=== PATIENT | female | born 1965 | race Caucasian/White ===

== ENCOUNTER 2016-08-23 23:07 | Inpatient (IN) | payer MEDICAID, OTHER ==
[~2016-08-23] VITALS: Ht 167.6 cm; Wt 62.1 kg
[~2016-08-23 23:07] MED LIST: ALPR0.255 PO; PARO10TA89 PO; TRAZ-144 PO
[2016-08-23] MEDS ORDERED: LORazepam 2 MG/ML VIAL IM ONE (23:30)
[2016-08-23] MEDS ORDERED: DiphenhydrAMINE HCL 50 MG/ML VIAL IM ONE (23:45)
[2016-08-23] MEDS ORDERED: OLANZapine 5 MG TABLET PO ONE (23:45)
[2016-08-24] VITALS (11 sets, daily range): BP systolic 97–133; BP diastolic 56–78
[2016-08-24 01:45] LABS: BASOPHILS # (AUTO) 0.01 K/uL (0.00-0.20); BASOPHILS % (AUTO) 0.2 % (0.0-2.0); EOSINOPHILS # (AUTO) 0.06 K/uL (0.00-0.70); EOSINOPHILS % (AUTO) 0.79 % (1.0-6.0); HEMATOCRIT 35.2 % (36-46); HEMOGLOBIN 11.6 g/dL (12.0-16.0); LYMPHOCYTES # (AUTO) 2.3 K/uL (1.0-4.8); LYMPHOCYTES % (AUTO) 32.7 % (22.0-44.0); MEAN CORPUSCULAR HEMOGLOBIN 31.6 pg (26.0-34.0); MEAN CORPUSCULAR VOLUME 96 fL (80-100); MONOCYTES # (AUTO) 0.7 K/uL (0.1-1.0); MONOCYTES % (AUTO) 10.2 % (2.0-9.0); NEUTROPHILS % (AUTO) 56.1 % (40.0-70.0); PLATELET COUNT (AUTO) 330 K/uL (150-450); RED BLOOD CELL COUNT(AUTO) 3.69 MIL/uL (4.00-5.20); WHITE BLOOD COUNT (AUTO) 7.1 K/uL (4.5-11.0)
[2016-08-24 01:54] LABS: ANION GAP 10 mmol/L (8-16); CALCIUM, TOTAL 8.2 mg/dL (8.8-10.5); CARBON DIOXIDE 26 mmol/L (22-29); CHLORIDE 105 mmol/L (98-107); CREATININE 0.69 mg/dL (0.60-1.30); GLOMERULAR FILTR. RATE CALC > 60 mL/min (>60); POTASSIUM 3.7 mmol/L (3.5-5.1); SODIUM SERUM 141 mmol/L (136-145); UREA NITROGEN, BLOOD 12 mg/dL (7-18)
[2016-08-24 02:02] LABS: ALANINE AMINOTRANSFERASE 256 U/L (12-78); ASPARTATE AMINOTRANSFERASE 76 U/L (15-37); BILIRUBIN,TOTAL 0.6 mg/dL (0.1-1.0); CHOL/HDL RATIO 4.1 (3.9-5.7)
[2016-08-24 03:33] LABS: APPEARANCE,URINE TURBID (CLEAR); GLUCOSE, URINE (UA) NEGATIVE (NEGATIVE); KETONES,URINE 15 mg/dL (NEGATIVE); LEUKOCYTE ESTERASE ,URINE LARGE (NEGATIVE); OCCULT BLOOD,URINE SMALL (NEGATIVE); PH,URINE 5.5 (5.0-8.0); PROTEIN,URINE TRACE (NEGATIVE)
[2016-08-24 03:39] LABS: ADD UA MICROSCOPIC YES
[2016-08-24 03:52] LABS: URINALYSIS COMMENT Moderate Trich. seen
[2016-08-24 03:54] LABS: SQUAMOUS EPITHELIAL CELL,UR Few /LPF (None Seen); WBC,URINE >100 /HPF (0-5)
[2016-08-24] MEDS ORDERED: BACITRACIN 28.4 GM OINTMENT TP PRN (08:30)
[2016-08-24] MEDS ORDERED: BENZOCAINE/MENTHOL LOZENGE MM PRN (08:30)
[2016-08-24] MEDS ORDERED: MAGNESIUM HYDROXIDE SUSPENSION 30 ML UDCUP PO PRN (08:30)
[2016-08-24] MEDS ORDERED: MAG HYDROX/AL HYDROX/SIMETH ES 30 ML SUSPENSION UDCUP PO PRN (08:30)
[2016-08-24] MEDS ORDERED: LOPERAMIDE HCL 2 MG CAPSULE PO PRN (08:30)
[2016-08-24] MEDS ORDERED: ONDANSETRON HCL 4 MG TABLET PO PRN (08:30)
[2016-08-24] MEDS ORDERED: ACETAMINOPHEN 325 MG TABLET PO PRN (08:30)
[2016-08-24] MEDS ORDERED: CloNIDine HCL 0.1 MG TABLET PO PRN (08:30)
[2016-08-24] MEDS ORDERED: PETROLATUM,WHITE 71 GM JELLY TP PRN (08:30)
[2016-08-24] MEDS ORDERED: IBUPROFEN 600 MG TABLET PO PRN (08:30)
[2016-08-24] MEDS ORDERED: ALBUTEROL SULFATE HFA 90 MCG/PUFF 8 GM INHALER IH PRN (08:30)
[2016-08-24] MEDS ORDERED: MetroNIDAZOLE 500 MG TABLET PO ONE (08:30)
[2016-08-24] MEDS: NYSTATIN 15 GM POWDER BOTTLE TP SCH ×2 (09:00→17:00)
[2016-08-24] MEDS: NITROFURANTOIN/NITROFURAN MAC 100 MG CAPSULE [MACROBID] PO SCH ×3 (09:00→17:00)
[2016-08-24] MEDS: LORazepam 2 MG TABLET PO PRN (13:15)
[2016-08-24] MEDS: OLANZapine 5 MG TABLET PO SCH (20:21)
[2016-08-24] MEDS ORDERED: RisperiDONE 1 MG TABLET PO SCH (21:00)
[2016-08-25 01:23] VITALS: BP 105/61
[2016-08-25 06:32] VITALS: BP 105/61
[2016-08-25] MEDS: OLANZapine 5 MG TABLET PO SCH ×2 (09:02→20:28)
[2016-08-25] MEDS: NITROFURANTOIN/NITROFURAN MAC 100 MG CAPSULE [MACROBID] PO SCH ×2 (09:02→17:55)
[2016-08-25] MEDS: NYSTATIN 15 GM POWDER BOTTLE TP SCH ×2 (09:02→17:00)
[2016-08-25] MEDS: LORazepam 2 MG TABLET PO PRN (09:03)
[2016-08-25 09:06] VITALS: BP 93/65
[2016-08-25 09:09] VITALS: BP 93/65
[2016-08-25 09:30] VITALS: BP 105/68
[2016-08-25 16:30] VITALS: BP 100/67
[2016-08-26 01:46] VITALS: BP 100/72
[2016-08-26 08:19] VITALS: BP 97/77
[2016-08-26 08:32] VITALS: BP 97/77
[2016-08-26] MEDS: NITROFURANTOIN/NITROFURAN MAC 100 MG CAPSULE [MACROBID] PO SCH ×2 (09:27→17:35)
[2016-08-26] MEDS: OLANZapine 5 MG TABLET PO SCH ×2 (09:28→21:16)
[2016-08-26] MEDS: NYSTATIN 15 GM POWDER BOTTLE TP SCH ×2 (09:28→17:35)
[2016-08-26] MEDS: OLANZapine 5 MG RAPDIS TABLET PO PRN (10:05)
[2016-08-26] MEDS: LORazepam 2 MG TABLET PO PRN (10:05)
[2016-08-26 15:13] LABS: HEPATITIS Bs ANTIGEN SCREEN P Negative (Negative); HEPATITIS C AB SCREEN >11.0 s/co ratio (0.0-0.9)
[2016-08-26 19:52] VITALS: BP 103/75
[2016-08-27] MEDS: LORazepam 2 MG TABLET PO PRN ×2 (09:01→17:05)
[2016-08-27] MEDS: NITROFURANTOIN/NITROFURAN MAC 100 MG CAPSULE [MACROBID] PO SCH ×2 (09:01→17:02)
[2016-08-27] MEDS: NYSTATIN 15 GM POWDER BOTTLE TP SCH ×2 (09:02→17:02)
[2016-08-27] MEDS: OLANZapine 5 MG TABLET PO SCH (09:02)
[2016-08-27] MEDS ORDERED: OLANZapine 2.5 MG TABLET PO ONE (09:30)
[2016-08-27 14:24] VITALS: BP 111/71
[2016-08-27 16:13] VITALS: BP 117/66
[2016-08-27] MEDS: OLANZapine 5 MG RAPDIS TABLET PO PRN (17:06)
[2016-08-27 17:19] VITALS: BP 117/66
[2016-08-27] MEDS: OLANZapine 7.5 MG TABLET PO SCH (20:40)
[2016-08-28 06:47] VITALS: BP 103/60
[2016-08-28] MEDS: NYSTATIN 15 GM POWDER BOTTLE TP SCH ×2 (08:54→16:17)
[2016-08-28] MEDS: OLANZapine 7.5 MG TABLET PO SCH ×2 (08:54→20:46)
[2016-08-28] MEDS: NITROFURANTOIN/NITROFURAN MAC 100 MG CAPSULE [MACROBID] PO SCH ×2 (08:54→16:17)
[2016-08-28 09:02] VITALS: BP 124/70
[2016-08-28] MEDS: LORazepam 2 MG TABLET PO PRN ×2 (09:04→17:02)
[2016-08-28 13:12] LABS: HEPATITIS C AB SCREEN >11.0 s/co ratio (0.0-0.9)
[2016-08-28 16:00] VITALS: BP 101/70
[2016-08-29 07:22] VITALS: BP 121/79
[2016-08-29] MEDS: NYSTATIN 15 GM POWDER BOTTLE TP SCH ×2 (08:34→17:46)
[2016-08-29] MEDS: OLANZapine 7.5 MG TABLET PO SCH ×2 (08:34→20:04)
[2016-08-29 09:50] VITALS: BP 128/76
[2016-08-29 16:00] VITALS: BP 114/79
[2016-08-29] MEDS: OLANZapine 5 MG RAPDIS TABLET PO PRN (17:45)
[2016-08-29] MEDS: ZOLPIDEM TARTRATE 10 MG TABLET PO PRN (21:11)
[2016-08-30 05:58] VITALS: BP 112/76
[2016-08-30] MEDS: NYSTATIN 15 GM POWDER BOTTLE TP SCH ×2 (08:28→16:52)
[2016-08-30] MEDS: OLANZapine 7.5 MG TABLET PO SCH ×2 (08:28→20:31)
[2016-08-30 09:20] VITALS: BP 108/73
[2016-08-30] MEDS: OLANZapine 5 MG RAPDIS TABLET PO PRN ×2 (13:29→18:38)
[2016-08-30 16:15] VITALS: BP 128/73
[2016-08-30] MEDS: ZOLPIDEM TARTRATE 10 MG TABLET PO PRN (22:19)
[2016-08-31 07:05] VITALS: BP 103/78
[2016-08-31] MEDS: NYSTATIN 15 GM POWDER BOTTLE TP SCH ×2 (08:53→16:48)
[2016-08-31] MEDS: OLANZapine 7.5 MG TABLET PO SCH ×2 (08:53→20:13)
[2016-08-31 16:00] VITALS: BP 109/75
[2016-08-31] MEDS: OLANZapine 5 MG RAPDIS TABLET PO PRN (16:27)
[2016-08-31] MEDS: ZOLPIDEM TARTRATE 10 MG TABLET PO PRN (20:34)
[2016-09-01 06:11] VITALS: BP 110/71
[2016-09-01] MEDS: OLANZapine 7.5 MG TABLET PO SCH ×2 (08:51→20:09)
[2016-09-01] MEDS: NYSTATIN 30 GM CREAM TP SCH ×2 (09:00→17:08)
[2016-09-01] MEDS: FLUCONAZOLE 150 MG TABLET PO ONE ×2 (09:06→13:06)
[2016-09-01 09:21] VITALS: BP 111/62
[2016-09-01 16:02] VITALS: BP 109/76
[2016-09-01] MEDS: OLANZapine 5 MG RAPDIS TABLET PO PRN (16:26)
[2016-09-01] MEDS: ZOLPIDEM TARTRATE 10 MG TABLET PO PRN (21:02)
[2016-09-02 06:47] VITALS: BP 110/77
[2016-09-02] MEDS: OLANZapine 5 MG RAPDIS TABLET PO PRN (06:48)
[2016-09-02 06:50] VITALS: BP 112/67
[2016-09-02] MEDS ORDERED: DIAZEPAM 2 MG TABLET PO PRN (08:15)
[2016-09-02 08:22] LABS: ADD UA MICROSCOPIC YES; APPEARANCE,URINE CLOUDY (CLEAR); GLUCOSE, URINE (UA) NEGATIVE (NEGATIVE); KETONES,URINE NEGATIVE (NEGATIVE); LEUKOCYTE ESTERASE ,URINE MODERATE (NEGATIVE); OCCULT BLOOD,URINE NEGATIVE (NEGATIVE); PH,URINE 7.5 (5.0-8.0); PROTEIN,URINE NEGATIVE (NEGATIVE)
[2016-09-02] MEDS: OLANZapine 7.5 MG TABLET PO SCH ×2 (08:22→20:28)
[2016-09-02] MEDS: NYSTATIN 30 GM CREAM TP SCH ×2 (08:22→17:25)
[2016-09-02 08:38] VITALS: BP 100/70
[2016-09-02] MEDS: NICOTINE 21 MG/24 HOUR PATCH TD SCH (09:00)
[2016-09-02] MEDS ORDERED: PERMETHRIN 1% 60 ML LOTION TP ONE (09:00)
[2016-09-02 09:02] LABS: SQUAMOUS EPITHELIAL CELL,UR Few /LPF (None Seen)
[2016-09-02 16:27] VITALS: BP 118/65
[2016-09-02 17:07] LABS: HEPATITIS C RNA QNT 6020 IU/mL
[2016-09-02] MEDS: CIPROFLOXACIN HCL 250 MG TABLET PO SCH (18:00)
[2016-09-02] MEDS: ZOLPIDEM TARTRATE 10 MG TABLET PO PRN (22:02)
[2016-09-03 06:28] VITALS: BP 107/75
[2016-09-03] MEDS: CIPROFLOXACIN HCL 250 MG TABLET PO SCH (08:08)
[2016-09-03] MEDS: OLANZapine 7.5 MG TABLET PO SCH (08:08)
[2016-09-03] MEDS: NYSTATIN 30 GM CREAM TP SCH (08:08)
[2016-09-03] MEDS: NICOTINE 21 MG/24 HOUR PATCH TD SCH (08:08)
[2016-09-03 08:28] VITALS: BP 107/76
[2016-09-03] MEDS ORDERED: OLAN7.5T2 PO (09:57)
[2016-09-03] MEDS ORDERED: CIP250 PO (09:59)
== END 2016-09-03 15:16 | disposition home or self-care (01) | DRG 750 ==
LOC: EMS 23:08 → B3A 08-24 00:24
PROC: GZHZZZZ Group Psychotherapy (ICD-10-PCS; principal; 2016-08-24)
DX: F25.1 Schizoaffective disorder, depressive type (principal); N39.0 Urinary tract infection, site not specified; J44.9 Chronic obstructive pulmonary disease, unspecified; E83.51 Hypocalcemia; F15.10 Other stimulant abuse, uncomplicated; B37.3 Candidiasis of vulva and vagina; A59.9 Trichomoniasis, unspecified; F12.90 Cannabis use, unspecified, uncomplicated; F43.10 Post-traumatic stress disorder, unspecified; F19.10 Other psychoactive substance abuse, uncomplicated; N76.0 Acute vaginitis; G47.00 Insomnia, unspecified; M54.5 Low back pain; D64.9 Anemia, unspecified; B95.1 Streptococcus, group B, as the cause of diseases classified elsewhere; B96.4 Proteus (mirabilis) (morganii) as the cause of diseases classified elsewhere; F17.200 Nicotine dependence, unspecified, uncomplicated; R26.81 Unsteadiness on feet; Z76.5 Malingerer [conscious simulation]; Z88.8 Allergy status to other drugs, medicaments and biological substances; Z79.899 Other long term (current) drug therapy; Z71.6 Tobacco abuse counseling; Z71.51 Drug abuse counseling and surveillance of drug abuser; Z59.0 Homelessness; Z72.89 Other problems related to lifestyle
CPT/HCPCS: 51702; 80074; 82306; 84443; 86803; 87086; 87147; 87522; 96372; 99285; G0480; J1200; J2060

== ENCOUNTER 2016-10-03 22:12 | Inpatient (IN) | payer MEDICAID ==
[~2016-10-03] VITALS: Ht 165.1 cm; Wt 61.7 kg
[~2016-10-03 22:12] MED LIST changes: -ALPR0.255 PO; +CIP250 PO; +OLAN7.5T2 PO; -PARO10TA89 PO; -TRAZ-144 PO
[2016-10-04 00:43] VITALS: BP 127/65
[2016-10-04] MEDS ORDERED: PNEUMOCOCCAL VACCINE POLYVALENT 0.5 ML VIAL [PPSV23] IM ONE (01:15)
[2016-10-04 07:45] LABS: BASOPHILS # (AUTO) 0.02 K/uL (0.00-0.20); BASOPHILS % (AUTO) 0.6 % (0.0-2.0); EOSINOPHILS # (AUTO) 0.18 K/uL (0.00-0.70); EOSINOPHILS % (AUTO) 4.57 % (1.0-6.0); HEMOGLOBIN 12.3 g/dL (12.0-16.0); LYMPHOCYTES # (AUTO) 1.7 K/uL (1.0-4.8); MEAN CORPUSCULAR HGB CONC 33.3 G/dL (31.0-37.0); MEAN CORPUSCULAR VOLUME 96 fL (80-100); MONOCYTES # (AUTO) 0.4 K/uL (0.1-1.0); MONOCYTES % (AUTO) 9.2 % (2.0-9.0); NEUTROPHILS # (AUTO) 1.6 K/uL (1.8-7.7); NEUTROPHILS % (AUTO) 41.5 % (40.0-70.0); PLATELET COUNT (AUTO) 300 K/uL (150-450); RED BLOOD CELL COUNT(AUTO) 3.85 MIL/uL (4.00-5.20); WHITE BLOOD COUNT (AUTO) 3.9 K/uL (4.5-11.0)
[2016-10-04 08:10] LABS: ALANINE AMINOTRANSFERASE 29 U/L (12-78); ANION GAP 4 mmol/L (8-16); ASPARTATE AMINOTRANSFERASE 25 U/L (15-37); BILIRUBIN,TOTAL 0.3 mg/dL (0.1-1.0); CALCIUM, TOTAL 8.8 mg/dL (8.8-10.5); CARBON DIOXIDE 31 mmol/L (22-29); CHLORIDE 103 mmol/L (98-107); CHOL/HDL RATIO 3.5 (3.9-5.7); CREATININE 0.99 mg/dL (0.60-1.30); GLOMERULAR FILTR. RATE CALC 59 mL/min (>60); POTASSIUM 4.6 mmol/L (3.5-5.1); SODIUM SERUM 138 mmol/L (136-145); THYROID STIMULATING HORMONE 0.54 uIU/mL (0.36-3.74); TOTAL PROTEIN, SERUM 6.6 g/dL (6.4-8.2); UREA NITROGEN, BLOOD 18 mg/dL (7-18)
[2016-10-04] MEDS ORDERED: CloNIDine HCL 0.1 MG TABLET PO PRN (08:45)
[2016-10-04] MEDS ORDERED: IBUPROFEN 600 MG TABLET PO PRN (08:45)
[2016-10-04] MEDS ORDERED: BACITRACIN 28.4 GM OINTMENT TP PRN (08:45)
[2016-10-04] MEDS ORDERED: ACETAMINOPHEN 325 MG TABLET PO PRN (08:45)
[2016-10-04] MEDS ORDERED: ONDANSETRON HCL 4 MG TABLET PO PRN (08:45)
[2016-10-04] MEDS ORDERED: ALBUTEROL SULFATE HFA 90 MCG/PUFF 8 GM INHALER IH PRN (08:45)
[2016-10-04] MEDS ORDERED: MAG HYDROX/AL HYDROX/SIMETH ES 30 ML SUSPENSION UDCUP PO PRN (08:45)
[2016-10-04] MEDS ORDERED: PETROLATUM,WHITE 71 GM JELLY TP PRN (08:45)
[2016-10-04] MEDS ORDERED: BENZOCAINE/MENTHOL LOZENGE MM PRN (08:45)
[2016-10-04] MEDS ORDERED: LOPERAMIDE HCL 2 MG CAPSULE PO PRN (08:45)
[2016-10-04] MEDS ORDERED: MAGNESIUM HYDROXIDE SUSPENSION 30 ML UDCUP PO PRN (08:45)
[2016-10-04] MEDS: NICOTINE 21 MG/24 HOUR PATCH TD SCH (09:00)
[2016-10-04 09:04] VITALS: BP 118/62
[2016-10-04] MEDS: LORazepam 2 MG TABLET PO PRN (09:45)
[2016-10-04] MEDS: QUEtiapine FUMARATE 100 MG TABLET PO PRN (09:45)
[2016-10-04] MEDS: DOCUSATE SODIUM 100 MG CAPSULE PO SCH (09:59)
[2016-10-04] MEDS: OMEPRAZOLE 20 MG CAPSULE PO SCH (09:59)
[2016-10-04] MEDS: MULTIVITAMINS WITH MINERALS, THERAPEUTIC TABLET PO SCH (09:59)
[2016-10-04 16:30] VITALS: BP 109/79
[2016-10-05 08:39] VITALS: BP 118/66
[2016-10-05] MEDS: NICOTINE 21 MG/24 HOUR PATCH TD SCH (09:00)
[2016-10-05] MEDS: OMEPRAZOLE 20 MG CAPSULE PO SCH (09:56)
[2016-10-05] MEDS: MULTIVITAMINS WITH MINERALS, THERAPEUTIC TABLET PO SCH (09:56)
[2016-10-05] MEDS: QUEtiapine FUMARATE 100 MG TABLET PO PRN (09:56)
[2016-10-05] MEDS: LORazepam 2 MG TABLET PO PRN (09:56)
[2016-10-05] MEDS: DOCUSATE SODIUM 100 MG CAPSULE PO SCH (09:57)
[2016-10-05 16:42] VITALS: BP 113/68
[2016-10-06 08:18] VITALS: BP 115/63
[2016-10-06] MEDS: MULTIVITAMINS WITH MINERALS, THERAPEUTIC TABLET PO SCH (09:32)
[2016-10-06] MEDS: OMEPRAZOLE 20 MG CAPSULE PO SCH (09:32)
[2016-10-06] MEDS: NICOTINE 21 MG/24 HOUR PATCH TD SCH (09:32)
[2016-10-06] MEDS: DOCUSATE SODIUM 100 MG CAPSULE PO SCH (09:32)
[2016-10-06] MEDS: QUEtiapine FUMARATE 100 MG TABLET PO PRN (13:51)
[2016-10-06] MEDS: LORazepam 2 MG TABLET PO PRN (13:51)
[2016-10-06 16:20] VITALS: BP 114/80
[2016-10-07 05:51] VITALS: BP 110/72
[2016-10-07] MEDS: OMEPRAZOLE 20 MG CAPSULE PO SCH (08:19)
[2016-10-07] MEDS: MULTIVITAMINS WITH MINERALS, THERAPEUTIC TABLET PO SCH (08:19)
[2016-10-07] MEDS: NICOTINE 21 MG/24 HOUR PATCH TD SCH (08:20)
[2016-10-07] MEDS: LORazepam 2 MG TABLET PO PRN ×2 (08:21→16:54)
[2016-10-07 08:59] VITALS: BP 116/85
[2016-10-07] MEDS: DOCUSATE SODIUM 100 MG CAPSULE PO SCH (09:00)
[2016-10-07 16:22] VITALS: BP 109/77
[2016-10-07] MEDS: QUEtiapine FUMARATE 100 MG TABLET PO PRN (16:54)
[2016-10-08 06:43] VITALS: BP 110/72
[2016-10-08 08:09] VITALS: BP 113/75
[2016-10-08] MEDS: MULTIVITAMINS WITH MINERALS, THERAPEUTIC TABLET PO SCH (08:19)
[2016-10-08] MEDS: OMEPRAZOLE 20 MG CAPSULE PO SCH (08:19)
[2016-10-08] MEDS: NICOTINE 21 MG/24 HOUR PATCH TD SCH (08:19)
[2016-10-08] MEDS: DOCUSATE SODIUM 100 MG CAPSULE PO SCH (08:19)
[2016-10-08] MEDS: LORazepam 2 MG TABLET PO PRN ×2 (10:55→16:24)
[2016-10-08] MEDS: OLANZapine 5 MG TABLET PO SCH (16:15)
[2016-10-08] MEDS: QUEtiapine FUMARATE 100 MG TABLET PO PRN (16:24)
[2016-10-08 17:59] VITALS: BP 123/81
[2016-10-09] MEDS: LORazepam 2 MG TABLET PO PRN ×3 (03:06→16:21)
[2016-10-09 07:05] VITALS: BP 118/72
[2016-10-09] MEDS: OMEPRAZOLE 20 MG CAPSULE PO SCH (08:27)
[2016-10-09] MEDS: OLANZapine 5 MG TABLET PO SCH ×2 (08:27→16:21)
[2016-10-09] MEDS: MULTIVITAMINS WITH MINERALS, THERAPEUTIC TABLET PO SCH (08:27)
[2016-10-09] MEDS: DOCUSATE SODIUM 100 MG CAPSULE PO SCH (08:27)
[2016-10-09 08:32] VITALS: BP 112/74
[2016-10-09] MEDS: NICOTINE 21 MG/24 HOUR PATCH TD SCH (09:11)
[2016-10-09 16:00] VITALS: BP 111/76
[2016-10-09] MEDS: QUEtiapine FUMARATE 100 MG TABLET PO PRN (16:21)
[2016-10-09] MEDS: ZOLPIDEM TARTRATE 10 MG TABLET PO PRN (21:02)
[2016-10-10 06:49] VITALS: BP 100/62
[2016-10-10 08:22] VITALS: BP 118/76
[2016-10-10] MEDS: MULTIVITAMINS WITH MINERALS, THERAPEUTIC TABLET PO SCH (09:18)
[2016-10-10] MEDS: QUEtiapine FUMARATE 100 MG TABLET PO PRN ×2 (09:18→14:27)
[2016-10-10] MEDS: OMEPRAZOLE 20 MG CAPSULE PO SCH (09:18)
[2016-10-10] MEDS: DOCUSATE SODIUM 100 MG CAPSULE PO SCH (09:18)
[2016-10-10] MEDS: LORazepam 2 MG TABLET PO PRN ×2 (09:18→14:27)
[2016-10-10] MEDS: OLANZapine 5 MG TABLET PO SCH ×2 (09:19→16:17)
[2016-10-10] MEDS: NICOTINE 21 MG/24 HOUR PATCH TD SCH (09:19)
[2016-10-10 19:57] VITALS: BP 100/73
[2016-10-10] MEDS: ZOLPIDEM TARTRATE 10 MG TABLET PO PRN (20:51)
[2016-10-11] MEDS: LORazepam 2 MG TABLET PO PRN ×3 (00:07→16:56)
[2016-10-11 00:13] VITALS: BP 112/69
[2016-10-11 08:09] VITALS: BP 103/79
[2016-10-11] MEDS: OMEPRAZOLE 20 MG CAPSULE PO SCH (08:30)
[2016-10-11] MEDS: MULTIVITAMINS WITH MINERALS, THERAPEUTIC TABLET PO SCH (08:30)
[2016-10-11] MEDS: OLANZapine 5 MG TABLET PO SCH ×2 (08:30→16:57)
[2016-10-11] MEDS: DOCUSATE SODIUM 100 MG CAPSULE PO SCH (08:30)
[2016-10-11] MEDS: NICOTINE 21 MG/24 HOUR PATCH TD SCH (08:30)
[2016-10-11] MEDS: QUEtiapine FUMARATE 100 MG TABLET PO PRN ×2 (11:21→16:56)
[2016-10-11] MEDS ORDERED: DSS100 PO (14:21)
[2016-10-11] MEDS ORDERED: MULT-248 PO (14:21)
[2016-10-11] MEDS ORDERED: DOCU250C91 PO (14:21)
[2016-10-11] MEDS ORDERED: OLAN5TAB2 PO (14:21)
[2016-10-11] MEDS ORDERED: OMEP20 PO (14:21)
[2016-10-11 16:07] VITALS: BP 105/72
[2016-10-11] MEDS: ZOLPIDEM TARTRATE 10 MG TABLET PO PRN (21:06)
[2016-10-12 02:44] VITALS: BP 117/71
[2016-10-12 08:41] VITALS: BP 144/88
[2016-10-12] MEDS: DOCUSATE SODIUM 100 MG CAPSULE PO SCH (08:58)
[2016-10-12] MEDS: OMEPRAZOLE 20 MG CAPSULE PO SCH (08:58)
[2016-10-12] MEDS: OLANZapine 5 MG TABLET PO SCH (08:59)
[2016-10-12] MEDS: NICOTINE 21 MG/24 HOUR PATCH TD SCH (08:59)
[2016-10-12] MEDS: LORazepam 2 MG TABLET PO PRN (09:03)
[2016-10-12] MEDS: MULTIVITAMINS WITH MINERALS, THERAPEUTIC TABLET PO SCH (09:03)
== END 2016-10-12 13:00 | disposition home or self-care (01) | DRG 750 ==
LOC: B3A 23:54
PROVIDERS: ADMIT Psychiatry & Neurology Psychiatry
PROC: 3E0234Z Introduction of Serum, Toxoid and Vaccine into Muscle, Percutaneous Approach (ICD-10-PCS; principal; 2016-10-04)
DX: F25.0 Schizoaffective disorder, bipolar type (principal); E44.1 Mild protein-calorie malnutrition; R45.851 Suicidal ideations; F15.20 Other stimulant dependence, uncomplicated; Z59.0 Homelessness; F17.210 Nicotine dependence, cigarettes, uncomplicated; F12.90 Cannabis use, unspecified, uncomplicated; D72.819 Decreased white blood cell count, unspecified; B18.2 Chronic viral hepatitis C; G47.00 Insomnia, unspecified; J44.9 Chronic obstructive pulmonary disease, unspecified; K59.00 Constipation, unspecified; M19.90 Unspecified osteoarthritis, unspecified site; Z71.6 Tobacco abuse counseling; Z88.8 Allergy status to other drugs, medicaments and biological substances; Z79.899 Other long term (current) drug therapy; Z79.51 Long term (current) use of inhaled steroids; Z71.51 Drug abuse counseling and surveillance of drug abuser; Z23 Encounter for immunization; Z68.22 Body mass index [BMI] 22.0-22.9, adult
CPT/HCPCS: 84436; 84439; 84443; 86592; 90471

== ENCOUNTER 2016-12-15 19:27 | Emergency (ER) | payer MEDICAID, OTHER ==
[~2016-12-15] VITALS: Ht 167.6 cm; Wt 59.1 kg
[~2016-12-15 19:27] MED LIST changes: -CIP250 PO; +DSS100 PO; +OLAN5TAB2 PO; -OLAN7.5T2 PO; +OMEP20 PO
[2016-12-15 20:24] LABS: BASOPHILS # (AUTO) 0.03 K/uL (0.00-0.20); BASOPHILS % (AUTO) 0.5 % (0.0-2.0); EOSINOPHILS # (AUTO) 0.21 K/uL (0.00-0.70); EOSINOPHILS % (AUTO) 3.18 % (1.0-6.0); HEMATOCRIT 38.4 % (36-46); HEMOGLOBIN 13.3 g/dL (12.0-16.0); MEAN CORPUSCULAR HEMOGLOBIN 31.9 pg (26.0-34.0); MEAN CORPUSCULAR HGB CONC 34.6 G/dL (31.0-37.0); MEAN CORPUSCULAR VOLUME 92 fL (80-100); MONOCYTES # (AUTO) 0.5 K/uL (0.1-1.0); MONOCYTES % (AUTO) 7.4 % (2.0-9.0); NEUTROPHILS % (AUTO) 43.9 % (40.0-70.0); PLATELET COUNT (AUTO) 288 K/uL (150-450); RED BLOOD CELL COUNT(AUTO) 4.16 MIL/uL (4.00-5.20); RED CELL DISTRIBUTION WIDTH 13.2 % (11.5-14.5)
[2016-12-15 20:31] LABS: ANION GAP 10 mmol/L (8-16); CALCIUM, TOTAL 8.4 mg/dL (8.8-10.5); CARBON DIOXIDE 26 mmol/L (22-29); CHLORIDE 103 mmol/L (98-107); CREATININE 0.82 mg/dL (0.60-1.30); GLOMERULAR FILTR. RATE CALC > 60 mL/min (>60); GLUCOSE,RANDOM 111 mg/dL (70-110); POTASSIUM 4.3 mmol/L (3.5-5.1); SODIUM SERUM 139 mmol/L (136-145); UREA NITROGEN, BLOOD 19 mg/dL (7-18)
[2016-12-15 20:37] LABS: ALANINE AMINOTRANSFERASE 57 U/L (12-78); ALBUMIN 3.3 g/dL (3.4-5.0); ALKALINE PHOSPHATASE 106 U/L (46-116); ASPARTATE AMINOTRANSFERASE 35 U/L (15-37); BILIRUBIN,TOTAL 0.1 mg/dL (0.1-1.0); TOTAL PROTEIN, SERUM 7.6 g/dL (6.4-8.2)
[2016-12-15 20:59] LABS: AMPHET/METH SCREEN,URINE NEGATIVE (NEGATIVE); BARBITURATE SCREEN, URINE NEGATIVE (NEGATIVE); BENZODIAZEPINES SCREEN,URINE POSITIVE (NEGATIVE); CANNABINOID SCREEN,URINE NEGATIVE (NEGATIVE); COCAINE SCREEN,URINE NEGATIVE (NEGATIVE); METHADONE SCREEN, URINE NEGATIVE (NEGATIVE); OPIATE SCREEN,URINE POSITIVE (NEGATIVE); PHENCYCLIDINE SCREEN,URINE NEGATIVE (NEGATIVE)
[2016-12-15 21:51] VITALS: BP 109/63
== END 2016-12-15 22:30 | disposition home or self-care (01) ==
LOC: EMS 19:29
DX: F10.129 Alcohol abuse with intoxication, unspecified (principal); R45.851 Suicidal ideations; F31.9 Bipolar disorder, unspecified; F20.9 Schizophrenia, unspecified; F15.90 Other stimulant use, unspecified, uncomplicated; Z59.0 Homelessness; Z88.8 Allergy status to other drugs, medicaments and biological substances; Z87.891 Personal history of nicotine dependence; Y90.6 Blood alcohol level of 120-199 mg/100 ml
CPT/HCPCS: 36415; 80053; 80307; 85025; 99284; G0480

== ENCOUNTER 2017-05-14 10:43 | Inpatient (IN) | payer MEDICAID, OTHER ==
[~2017-05-14] VITALS: Ht 170.2 cm; Wt 60.4 kg
[2017-05-14 11:41] LABS: BASOPHILS % (AUTO) 0.3 % (0.0-2.0); EOSINOPHILS % (AUTO) 0.6 % (1.0-6.0); HEMATOCRIT 41.9 % (36-46); HEMOGLOBIN 14.4 g/dL (12.0-16.0); LYMPHOCYTES # (AUTO) 1.4 K/uL (1.0-4.8); LYMPHOCYTES % (AUTO) 14.9 % (22.0-44.0); MEAN CORPUSCULAR HEMOGLOBIN 32.8 pg (26.0-34.0); MEAN CORPUSCULAR HGB CONC 34.4 G/dL (31.0-37.0); MEAN CORPUSCULAR VOLUME 95 fL (80-100); MONOCYTES # (AUTO) 0.7 K/uL (0.1-1.0); MONOCYTES % (AUTO) 7.1 % (2.0-9.0); NEUTROPHILS # (AUTO) 7.2 K/uL (1.8-7.7); NEUTROPHILS % (AUTO) 77.1 % (40.0-70.0); PLATELET COUNT (AUTO) 344 K/uL (150-450); RED BLOOD CELL COUNT(AUTO) 4.39 MIL/uL (4.00-5.20); RED CELL DISTRIBUTION WIDTH 13.4 % (11.5-14.5)
[2017-05-14 11:57] LABS: ANION GAP 8 mmol/L (8-16); CALCIUM, TOTAL 9.9 mg/dL (8.8-10.5); CARBON DIOXIDE 30 mmol/L (22-29); CHLORIDE 100 mmol/L (98-107); CREATININE 1.01 mg/dL (0.60-1.30); GLOMERULAR FILTR. RATE CALC 57 mL/min (>60); GLUCOSE,RANDOM 101 mg/dL (70-110); POTASSIUM 4.1 mmol/L (3.5-5.1); SODIUM SERUM 138 mmol/L (136-145); UREA NITROGEN, BLOOD 14 mg/dL (7-18)
[2017-05-14 11:59] LABS: ALANINE AMINOTRANSFERASE 518 U/L (12-78); ALBUMIN 3.6 g/dL (3.4-5.0); ALKALINE PHOSPHATASE 118 U/L (46-116); ASPARTATE AMINOTRANSFERASE 407 U/L (15-37); BILIRUBIN,TOTAL 0.8 mg/dL (0.1-1.0); TOTAL PROTEIN, SERUM 8.8 g/dL (6.4-8.2)
[2017-05-14] MEDS ORDERED: LORazepam 2 MG TABLET PO ONE (13:45)
[2017-05-14] MEDS ORDERED: OLANZapine 5 MG TABLET PO ONE (14:45)
[2017-05-14] MEDS ORDERED: OLANZapine 5 MG TABLET PO PRN (15:00)
[2017-05-14] MEDS ORDERED: ZOLPIDEM TARTRATE 10 MG TABLET PO PRN (15:00)
[2017-05-14 16:32] VITALS: BP 96/67
[2017-05-14] MEDS: OLANZapine 5 MG TABLET PO SCH (17:24)
[2017-05-14] MEDS ORDERED: ALBUTEROL SULFATE HFA 90 MCG/PUFF 8 GM INHALER IH PRN (17:30)
[2017-05-14] MEDS ORDERED: IBUPROFEN 600 MG TABLET PO PRN (17:30)
[2017-05-14] MEDS ORDERED: INFLUENZA VIRUS VACCINE QVS 2017-18 (3YR+)/PF 60 MCG/0.5 ML SYRINGE IM ONE (17:45)
[2017-05-15 06:08] VITALS: BP 105/66
[2017-05-15 09:01] VITALS: BP 104/74
[2017-05-15] MEDS: OLANZapine 5 MG TABLET PO SCH ×3 (09:25→17:04)
[2017-05-15] MEDS: OMEPRAZOLE 20 MG CAPSULE PO SCH (09:25)
[2017-05-15] MEDS: NICOTINE 21 MG/24 HOUR PATCH TD SCH (09:25)
[2017-05-15] MEDS: MULTIVITAMINS WITH MINERALS, THERAPEUTIC TABLET PO SCH (09:39)
[2017-05-15 18:10] VITALS: BP 106/68
[2017-05-16 07:32] VITALS: BP 110/62
[2017-05-16] MEDS: OLANZapine 5 MG TABLET PO SCH ×2 (09:06→16:19)
[2017-05-16] MEDS: OMEPRAZOLE 20 MG CAPSULE PO SCH (09:06)
[2017-05-16] MEDS: MULTIVITAMINS WITH MINERALS, THERAPEUTIC TABLET PO SCH (09:06)
[2017-05-16] MEDS: NICOTINE 21 MG/24 HOUR PATCH TD SCH (09:06)
[2017-05-16] MEDS: BuPROPion HCL 100 MG TABLET PO SCH (16:19)
[2017-05-16 16:40] VITALS: BP 100/62
[2017-05-17 07:06] VITALS: BP 114/63
[2017-05-17 08:33] VITALS: BP 115/71
[2017-05-17] MEDS: BuPROPion HCL 100 MG TABLET PO SCH ×2 (09:19→16:11)
[2017-05-17] MEDS: MULTIVITAMINS WITH MINERALS, THERAPEUTIC TABLET PO SCH (09:19)
[2017-05-17] MEDS: NICOTINE 21 MG/24 HOUR PATCH TD SCH (09:19)
[2017-05-17] MEDS: OLANZapine 5 MG TABLET PO SCH ×2 (09:19→16:11)
[2017-05-17] MEDS: OMEPRAZOLE 20 MG CAPSULE PO SCH (09:19)
[2017-05-17 16:13] VITALS: BP 109/75
[2017-05-17] MEDS: LORazepam 2 MG TABLET PO PRN (22:36)
[2017-05-18] MEDS: OLANZapine 5 MG TABLET PO SCH ×2 (08:31→16:25)
[2017-05-18] MEDS: NICOTINE 21 MG/24 HOUR PATCH TD SCH (08:31)
[2017-05-18] MEDS: BuPROPion HCL 100 MG TABLET PO SCH ×2 (08:31→16:25)
[2017-05-18] MEDS: OMEPRAZOLE 20 MG CAPSULE PO SCH (08:31)
[2017-05-18] MEDS: MULTIVITAMINS WITH MINERALS, THERAPEUTIC TABLET PO SCH (08:31)
[2017-05-18] MEDS: LORazepam 2 MG TABLET PO PRN (09:08)
[2017-05-18 09:49] VITALS: BP 110/77
[2017-05-18 16:27] VITALS: BP 104/61
[2017-05-19 07:04] VITALS: BP 110/62
[2017-05-19 08:07] VITALS: BP 102/61
[2017-05-19] MEDS: MULTIVITAMINS WITH MINERALS, THERAPEUTIC TABLET PO SCH (08:18)
[2017-05-19] MEDS: BuPROPion HCL 100 MG TABLET PO SCH ×2 (08:18→16:18)
[2017-05-19] MEDS: OLANZapine 5 MG TABLET PO SCH ×2 (08:18→16:18)
[2017-05-19] MEDS: NICOTINE 21 MG/24 HOUR PATCH TD SCH (08:18)
[2017-05-19] MEDS: OMEPRAZOLE 20 MG CAPSULE PO SCH (08:18)
[2017-05-19 16:09] VITALS: BP 105/66
[2017-05-19] MEDS: LORazepam 2 MG TABLET PO PRN (17:00)
[2017-05-20 07:19] VITALS: BP 110/72
[2017-05-20 08:38] VITALS: BP 101/69
[2017-05-20] MEDS: NICOTINE 21 MG/24 HOUR PATCH TD SCH (08:53)
[2017-05-20] MEDS: OLANZapine 5 MG TABLET PO SCH ×2 (08:54→16:18)
[2017-05-20] MEDS: OMEPRAZOLE 20 MG CAPSULE PO SCH (08:54)
[2017-05-20] MEDS: MULTIVITAMINS WITH MINERALS, THERAPEUTIC TABLET PO SCH (08:54)
[2017-05-20] MEDS: BuPROPion HCL 100 MG TABLET PO SCH ×2 (08:54→16:18)
[2017-05-20 16:05] VITALS: BP 109/78
[2017-05-20] MEDS: LORazepam 2 MG TABLET PO PRN (16:18)
[2017-05-21 07:02] VITALS: BP 100/62
[2017-05-21 08:22] VITALS: BP 108/68
[2017-05-21] MEDS: BuPROPion HCL 100 MG TABLET PO SCH ×2 (08:49→17:11)
[2017-05-21] MEDS: OLANZapine 5 MG TABLET PO SCH ×2 (08:49→17:11)
[2017-05-21] MEDS: MULTIVITAMINS WITH MINERALS, THERAPEUTIC TABLET PO SCH (08:49)
[2017-05-21] MEDS: OMEPRAZOLE 20 MG CAPSULE PO SCH (08:49)
[2017-05-21] MEDS: NICOTINE 21 MG/24 HOUR PATCH TD SCH (08:52)
[2017-05-21] MEDS: LORazepam 2 MG TABLET PO PRN (14:38)
[2017-05-21 16:00] VITALS: BP 111/73
[2017-05-22 05:43] VITALS: BP 103/69
[2017-05-22 08:13] VITALS: BP 123/67
[2017-05-22] MEDS: BuPROPion HCL 100 MG TABLET PO SCH ×2 (08:39→16:17)
[2017-05-22] MEDS: OMEPRAZOLE 20 MG CAPSULE PO SCH (08:39)
[2017-05-22] MEDS: OLANZapine 5 MG TABLET PO SCH ×2 (08:39→16:18)
[2017-05-22] MEDS: NICOTINE 21 MG/24 HOUR PATCH TD SCH (08:40)
[2017-05-22] MEDS: MULTIVITAMINS WITH MINERALS, THERAPEUTIC TABLET PO SCH (08:40)
[2017-05-22 09:31] LABS: AMPHET/METH SCREEN,URINE NEGATIVE (NEGATIVE); BARBITURATE SCREEN, URINE NEGATIVE (NEGATIVE); BENZODIAZEPINES SCREEN,URINE NEGATIVE (NEGATIVE); CANNABINOID SCREEN,URINE NEGATIVE (NEGATIVE); COCAINE SCREEN,URINE NEGATIVE (NEGATIVE); METHADONE SCREEN, URINE NEGATIVE (NEGATIVE); OPIATE SCREEN,URINE NEGATIVE (NEGATIVE)
[2017-05-22 09:32] LABS: PHENCYCLIDINE SCREEN,URINE NEGATIVE (NEGATIVE)
[2017-05-22 09:43] LABS: APPEARANCE,URINE CLOUDY (CLEAR); BILIRUBIN,URINE NEGATIVE (NEGATIVE); GLUCOSE, URINE (UA) NEGATIVE (NEGATIVE); KETONES,URINE NEGATIVE (NEGATIVE); LEUKOCYTE ESTERASE ,URINE MODERATE (NEGATIVE); NITRATE,URINE NEGATIVE (NEGATIVE); OCCULT BLOOD,URINE MODERATE (NEGATIVE); PH,URINE 6.5 (5.0-8.0); PROTEIN,URINE NEGATIVE (NEGATIVE); UROBILINOGEN,URINE 0.2 mg/dL (<=1.0)
[2017-05-22 10:06] LABS: BACTERIA,URINE None Seen /HPF (None Seen); RBC,URINE 0-2 /HPF (0-2); SQUAMOUS EPITHELIAL CELL,UR Few /LPF (None Seen); WBC,URINE 26-50 /HPF (0-5)
[2017-05-22] MEDS: LORazepam 2 MG TABLET PO PRN (14:03)
[2017-05-22 16:00] VITALS: BP 112/65
[2017-05-22] MEDS: CIPROFLOXACIN HCL 500 MG TABLET PO SCH (16:17)
[2017-05-23 01:30] VITALS: BP 107/72
[2017-05-23 08:19] VITALS: BP 105/71
[2017-05-23] MEDS: BuPROPion HCL 100 MG TABLET PO SCH ×2 (09:11→16:07)
[2017-05-23] MEDS: MULTIVITAMINS WITH MINERALS, THERAPEUTIC TABLET PO SCH (09:11)
[2017-05-23] MEDS: CIPROFLOXACIN HCL 500 MG TABLET PO SCH ×2 (09:11→16:07)
[2017-05-23] MEDS: OLANZapine 5 MG TABLET PO SCH ×2 (09:11→16:07)
[2017-05-23] MEDS: OMEPRAZOLE 20 MG CAPSULE PO SCH (09:11)
[2017-05-23] MEDS: NICOTINE 21 MG/24 HOUR PATCH TD SCH (09:15)
[2017-05-23] MEDS: LORazepam 2 MG TABLET PO PRN ×3 (12:32→22:48)
[2017-05-23 16:11] VITALS: BP 109/71
[2017-05-24 05:17] VITALS: BP 105/70
[2017-05-24 08:30] VITALS: BP_SYST 103; BP_SYST 140; BP_DIAS 72; BP_DIAS 73
[2017-05-24] MEDS: CIPROFLOXACIN HCL 500 MG TABLET PO SCH ×2 (08:30→16:23)
[2017-05-24] MEDS: NICOTINE 21 MG/24 HOUR PATCH TD SCH (08:30)
[2017-05-24] MEDS: MULTIVITAMINS WITH MINERALS, THERAPEUTIC TABLET PO SCH (08:30)
[2017-05-24] MEDS: BuPROPion HCL 100 MG TABLET PO SCH ×2 (08:30→16:23)
[2017-05-24] MEDS: OMEPRAZOLE 20 MG CAPSULE PO SCH (08:30)
[2017-05-24] MEDS: OLANZapine 5 MG TABLET PO SCH ×2 (08:31→16:23)
[2017-05-24] MEDS: LORazepam 2 MG TABLET PO PRN (13:51)
[2017-05-24] MEDS: HYPROMELLOSE 0.5% 15 ML OPHTHALMIC SOLUTION OU PRN (14:48)
[2017-05-24 16:16] VITALS: BP 109/69
[2017-05-24] MEDS: ERYTHROMYCIN 0.5% 3.5 GM TUBE OPHTHALMIC OINTMENT OS SCH (16:24)
[2017-05-25] MEDS: HYPROMELLOSE 0.5% 15 ML OPHTHALMIC SOLUTION OU PRN (06:22)
[2017-05-25 06:35] VITALS: BP 133/84
[2017-05-25 08:07] VITALS: BP 114/74
[2017-05-25] MEDS: CIPROFLOXACIN HCL 500 MG TABLET PO SCH (08:19)
[2017-05-25] MEDS: ERYTHROMYCIN 0.5% 3.5 GM TUBE OPHTHALMIC OINTMENT OS SCH (08:19)
[2017-05-25] MEDS: MULTIVITAMINS WITH MINERALS, THERAPEUTIC TABLET PO SCH (08:19)
[2017-05-25] MEDS: OMEPRAZOLE 20 MG CAPSULE PO SCH (08:19)
[2017-05-25] MEDS: OLANZapine 5 MG TABLET PO SCH (08:19)
[2017-05-25] MEDS: NICOTINE 21 MG/24 HOUR PATCH TD SCH (08:19)
[2017-05-25] MEDS: BuPROPion HCL 100 MG TABLET PO SCH (08:19)
[2017-05-25] MEDS ORDERED: ERYT1OIN7 OS (13:10)
[2017-05-25] MEDS ORDERED: BUPR100 PO (13:10)
[2017-05-25] MEDS ORDERED: CIPR-278 PO (13:10)
== END 2017-05-25 13:50 | disposition home or self-care (01) | DRG 750 ==
LOC: EMS 10:47 → B3A 15:31
PROVIDERS: ADMIT Psychiatry & Neurology Child & Adolescent Psychiatry; ATTEND Psychiatry & Neurology Child & Adolescent Psychiatry
DX: F25.9 Schizoaffective disorder, unspecified (principal); E44.1 Mild protein-calorie malnutrition; B18.2 Chronic viral hepatitis C; F12.90 Cannabis use, unspecified, uncomplicated; F17.200 Nicotine dependence, unspecified, uncomplicated; F32.9 Major depressive disorder, single episode, unspecified; F43.10 Post-traumatic stress disorder, unspecified; G47.00 Insomnia, unspecified; J44.9 Chronic obstructive pulmonary disease, unspecified; K59.00 Constipation, unspecified; M19.90 Unspecified osteoarthritis, unspecified site; D72.819 Decreased white blood cell count, unspecified; F19.10 Other psychoactive substance abuse, uncomplicated; Z71.51 Drug abuse counseling and surveillance of drug abuser; Z71.6 Tobacco abuse counseling
CPT/HCPCS: 76705; 80074; 80307; 87086; 99285; G0480

== ENCOUNTER 2018-03-09 19:34 | Emergency (ER) | payer MEDICAID, OTHER ==
[~2018-03-09] VITALS: Ht 167.6 cm; Wt 68.0 kg
[~2018-03-09 19:34] MED LIST changes: +BUPR100 PO; +CIPR-278 PO; -DSS100 PO; +ERYT1OIN7 OS
[2018-03-09] MEDS ORDERED: OLANZapine 5 MG TABLET PO ONE (21:45)
[2018-03-09 21:50] LABS: BASOPHILS % (AUTO) 0.5 % (0.0-2.0); EOSINOPHILS % (AUTO) 0.5 % (1.0-6.0); HEMATOCRIT 40.9 % (36-46); HEMOGLOBIN 14.1 g/dL (12.0-16.0); LYMPHOCYTES # (AUTO) 1.6 K/uL (1.0-4.8); LYMPHOCYTES % (AUTO) 23.6 % (22.0-44.0); MEAN CORPUSCULAR HEMOGLOBIN 33.9 pg (26.0-34.0); MEAN CORPUSCULAR HGB CONC 34.5 G/dL (31.0-37.0); MEAN CORPUSCULAR VOLUME 98 fL (80-100); MONOCYTES # (AUTO) 0.8 K/uL (0.1-1.0); MONOCYTES % (AUTO) 11.9 % (2.0-9.0); NEUTROPHILS # (AUTO) 4.4 K/uL (1.8-7.7); NEUTROPHILS % (AUTO) 63.5 % (40.0-70.0); PLATELET COUNT (AUTO) 226 K/uL (150-450); RED BLOOD CELL COUNT(AUTO) 4.15 MIL/uL (4.00-5.20); RED CELL DISTRIBUTION WIDTH 13.1 % (11.5-14.5)
[2018-03-09 21:53] LABS: CALCIUM, TOTAL 9.1 mg/dL (8.8-10.5); CREATININE 1.15 mg/dL (0.60-1.30); POTASSIUM 3.5 mmol/L (3.5-5.1)
[2018-03-09 21:58] LABS: ALBUMIN 3.6 g/dL (3.4-5.0); BILIRUBIN,TOTAL 1.2 mg/dL (0.1-1.0)
[2018-03-09 23:08] LABS: AMPHET/METH SCREEN,URINE POSITIVE (NEGATIVE); BARBITURATE SCREEN, URINE NEGATIVE (NEGATIVE); BENZODIAZEPINES SCREEN,URINE POSITIVE (NEGATIVE); CANNABINOID SCREEN,URINE POSITIVE (NEGATIVE); COCAINE SCREEN,URINE NEGATIVE (NEGATIVE); METHADONE SCREEN, URINE NEGATIVE (NEGATIVE); OPIATE SCREEN,URINE NEGATIVE (NEGATIVE)
[2018-03-09 23:09] LABS: PHENCYCLIDINE SCREEN,URINE NEGATIVE (NEGATIVE)
[2018-03-09 23:42] VITALS: BP 127/89
== END 2018-03-10 00:19 | disposition home or self-care (01) ==
LOC: EMS 19:35
DX: F20.9 Schizophrenia, unspecified (principal); F19.10 Other psychoactive substance abuse, uncomplicated; F31.9 Bipolar disorder, unspecified; F19.90 Other psychoactive substance use, unspecified, uncomplicated; Z59.0 Homelessness; Z88.8 Allergy status to other drugs, medicaments and biological substances
CPT/HCPCS: 36415; 80053; 80307; 85025; 99284; G0480